=== PATIENT | female | born 1995 | race Caucasian/White ===

== ENCOUNTER 2018-12-25 09:48 | Inpatient (IN) | payer OTHER ==
[2018-12-25] VITALS (26 sets, daily range): BP systolic 130–196; BP diastolic 59–99
[~2018-12-25] VITALS: Ht 165.1 cm; Wt 88.3 kg
[2018-12-25] MEDS ORDERED: METF850T4 PO (10:18)
[2018-12-25] MEDS ORDERED: LACTATED RINGER'S 1000 ML IV STA (10:56)
[2018-12-25] MEDS ORDERED: PENICILLIN G POTASSIUM IV 5 MU in D5W MINI-BAG PLUS 100 ML IV STA (10:56)
[2018-12-25] MEDS ORDERED: LR 1,000 ML IV SCH (10:56)
--- NOTE | 2018-12-25 11:09 | HPEPDOC ---
Obstetrical History & Physical General Date of Admission December 25, 2018 at 10:50 History of Present Illness 22 y/o at 38+5 with LOF 2 hrs ago, no VB or painful ctx's. Having fairly r eg ctx's on NST. Pos FM. Preg c/b GDMA2, on metformin 850 BID. Known likely LGA, 30APR grth scan was 97%ile. Chief Complaint: LOF, term Information Provided By: Patient Care Care: Good Care Dating Final EDC by: LMP, 1st trimester (US) Past Medical History Past Obstetrical History : Past Obstetrical History: Primgravida [employer] History: No pertinent history Past Medical History Medical History denies Surgical History: Tonsilectomy, [place] teeth Family History Significant Family History: No pertinent family hx Social History Marital Status: Family situation: Spouse/partner home Psychosocial History: No pertinent psych hx * Smoker: non-smoker (quit at 8 weeks with pos hcg) Alcohol: Denies Drugs: denies Abuse Violence Screening Have you been hit/kicked/slapp: No Have you been sexually assault: No Imunizations Tdap status: current Influenza Status: current Allergies Coded Allergies: No Known Allergies (Unverified , 12/25/18) Medications Scheduled Metformin HCl (Metformin HCl) 850 Mg Tablet, 850 MG PO BID Physical Examination Physical Examination GENERAL: Alert and oriented times three. ABDOMEN: Gravid and non-tender to touch. FETUS: Is vertex (VTX) by sterile vaginal examination (SVE), 3/80/-2, nitr pos, gross LOF noted EXTREMITIES: No edema. Vital Signs/I&O Vital Signs Date Time Temp Pulse Resp B/P (MAP) Pulse Ox O2 Delivery O2 Flow Rate FiO2 12/25/18 10:13 97.6 84 18 150/99 (116) Laboratory Data 24H [facility] Laboratory Tests 2 12/25/18 10:54: Serology Scanned Report Hepatitis B Testing Urine Culture: No Growth Pertinent Laboratoy Data Blood Type: O+ RBC Antibody Screen: Negative HIV: Negative Hepatitis B: Negative Hepatitis C: Unknown Rapid Plasma Reagin: Nonreactive Rubella: Immune Varicella: Immune Chlamydia/Gonorrhea: Negative Group B Streptococcus: Positive Quad Screen Test: Declined Cystic Fibrosis: Negative Glucose Tolerance Test: 151 Anatomy Ultrasound Placenta Location: Anterior Normal Anatomy: Yes Placenta Previa: No Assessment Variability: Moderate Accelerations: Positive Decelerations: None Tocometer Contractions: Yes Frequency: irregular Duration: less than 60 seconds Strength: palpated as moderate Assessment/Plan Assessment SROM, term, known GDMA2, fair control. Chem 7 with admit labs. Increased risk for shoulder dystocia and macrosomia d/w pt. Plan Admit and orient. Recheck in 4 hrs, if no signif change will start pitocin. Supervisor Education and consent. Diet: clears Group B Streptococcus (GBS) pos, PCN 5/2.5 Labs and intravenous (IV) per unit protocol. Counseled on Pitocin and augmentation of labor as needed. Lactated Ringers (LR): Bolus 1000 mL prior to epidural, then at 125 mL/hr. Anticipate normal spontaneous delivery () C-S as appropriate. SESSIONS,AMANDA Oliveros MD December 25, 2018 11:09
[2018-12-25 11:54] LABS: HEMATOCRIT 32.6 % (36.0-47.0); HEMOGLOBIN 10.4 g/dl (12.0-15.5); MEAN CORPUSCULAR HEMOGLOBIN 24.6 pg (27.0-33.0); MEAN CORPUSCULAR HGB CONC 31.9 g/dl (32.0-36.5); MEAN CORPUSCULAR VOLUME 77.3 fl (80.0-96.0); PLATELET COUNT, AUTOMATED 187 10^3/uL (150-450); RED BLOOD COUNT 4.22 10^6/uL (4.00-5.40); WHITE BLOOD COUNT 7.2 10^3/uL (4.0-10.0)
--- NOTE | 2018-12-25 16:09 | IPNPDOC ---
Text Note Date of Service The patient was seen on 12/25/18. NOTE Cat 1 NST throughout Cx loose /-1 Doing well, recheck in 3-4 hrs, sooner prn Sessions A-FIB/JANETTE A-FIB History Current/History of A-Fib/PAF?: No VS,Fishbone, I+O VS, Fishbone, I+O Laboratory Tests 12/25/18 11:39 Red Blood Count 4.22, Mean Corpuscular Volume 77.3 L, Mean Corpuscular Hemoglobin 24.6 L, Mean Corpuscular Hemoglobin Concent 31.9 L, Red Cell Distribution Width 14.9 H Vital Signs Date Time Temp Pulse Resp B/P (MAP) Pulse Ox O2 Delivery O2 Flow Rate FiO2 12/25/18 14:59 97.6 63 18 142/75 (97) SESSIONS,AMANDA Oliveros MD December 25, 2018 16:09
[2018-12-25] MEDS: PENICILLIN G POTASSIUM IV 2.5 MU in APPROPRIATE DILUENT 1 EA IV SCH ×2 (16:24→19:48)
[2018-12-25 16:53] LABS: BLOOD UREA NITROGEN 11 MG/DL (7-18); CALCIUM LEVEL 8.4 MG/DL (8.5-10.1); CARBON DIOXIDE LEVEL 19 MEQ/L (21-32); CHLORIDE LEVEL 110 MEQ/L (98-107); CREATININE FOR GFR 0.52 MG/DL (0.55-1.30); GLOMERULAR FILTRATION RATE > 60.0 (>60); GLUCOSE, FASTING 79 MG/DL (70-100); POTASSIUM SERUM 4.4 MEQ/L (3.5-5.1); SODIUM LEVEL 140 MEQ/L (136-145)
[2018-12-25] MEDS ORDERED: FENTANYL 2MCG/ML ROPIVACAINE 0.2% IN 0.9% NACL 100ML IVBAG As Ordered ONE (20:15)
[2018-12-25] MEDS ORDERED: REFRIGERATOR IV KEYS XX PRN (22:15)
[2018-12-25] MEDS ORDERED: EPIDURAL COMMENT XX SCH (22:15)
[2018-12-25] MEDS ORDERED: FENTANYL/ROPIVACAINE/NACL BAG 100 ML EPIDURAL SCH (22:15)
[2018-12-25] MEDS ORDERED: LACTATED RINGER'S 1000 ML IV PRN (22:15)
[2018-12-25] MEDS ORDERED: EPIDURAL/PCA KEYS XX PRN (22:15)
[2018-12-25] MEDS ORDERED: ePHEDrine SULFATE 25 MG/5 ML(5MG/ML) SYRINGE IV PRN (22:15)
[2018-12-25] MEDS ORDERED: diphenhydrAMINE INJ 50MG/ML VIAL (J1200) IV PRN (22:15)
[2018-12-25] MEDS ORDERED: NALOXONE INJ 0.4 MG/1 ML VIAL (J2310) IV PRN (22:15)
[2018-12-25] MEDS ORDERED: ONDANSETRON 4MG/2ML VIAL (J2405) IV PRN (22:15)
--- NOTE | 2018-12-25 22:21 | IPNPDOC ---
Text Note Date of Service The patient was seen on 12/25/18. NOTE Was about 3 hrs ago, no time to chart, had to run to a delivery Now s/p epidural, feeling well. FHT Cat 1, reg ctx's Cx 7/100/0, AROM of a forebag, clr Doing well, recheck in 2-3 hrs, sooner prn Sessions A-FIB/JANETTE A-FIB History Current/History of A-Fib/PAF?: No VS,Fishbone, I+O VS, Fishbone, I+O Laboratory Tests 12/25/18 11:39 Red Blood Count 4.22, Mean Corpuscular Volume 77.3 L, Mean Corpuscular Hemoglobin 24.6 L, Mean Corpuscular Hemoglobin Concent 31.9 L, Red Cell Distribution Width 14.9 H, Calcium Level 8.4 L Vital Signs Date Time Temp Pulse Resp B/P (MAP) Pulse Ox O2 Delivery O2 Flow Rate FiO2 12/25/18 22:03 77 133/70 (91) 12/25/18 21:07 98.0 12/25/18 17:06 18 SESSIONS,AMANDA Oliveros MD December 25, 2018 22:21
[2018-12-26] VITALS (15 sets, daily range): BP systolic 114–163; BP diastolic 58–83
[2018-12-26] MEDS ORDERED: OXYTOCIN 30 UNITS IN 0.9% NaCl 500ML IV BAG (J2590) As Ordered ONE (02:04)
[2018-12-26] MEDS ORDERED: LR 1,000 ML IV SCH (02:16)
--- NOTE | 2018-12-26 02:16 | IPNPDOC ---
Text Note Date of Service The patient was seen on 12/26/18. NOTE NST Cat 1, reg ctx's Cx AL/100/+1 Will start pitocin to hopefully get the vtx lower before starting to push Recheck in 60-90 min Krysta WAHL A-FIB/JANETTE A-FIB History Current/History of A-Fib/PAF?: No VS,Fishbone, I+O VS, Fishbone, I+O Laboratory Tests 12/25/18 11:39 Red Blood Count 4.22, Mean Corpuscular Volume 77.3 L, Mean Corpuscular Hemoglobin 24.6 L, Mean Corpuscular Hemoglobin Concent 31.9 L, Red Cell Distribution Width 14.9 H, Calcium Level 8.4 L Vital Signs Date Time Temp Pulse Resp B/P (MAP) Pulse Ox O2 Delivery O2 Flow Rate FiO2 12/26/18 00:54 78 114/58 (76) 12/25/18 23:48 98.3 18 I&O- Last 24 Hours up to 6 AM 12/26/18 05:59 Intake Total 3120 ml Output Total 1650 ml Balance 1470 ml SESSIONS,AMANDA Oliveros MD December 26, 2018 02:16
[2018-12-26] MEDS ORDERED: OXYTOCIN DRIP 30 UNITS in APPROPRIATE DILUENT 1 EA IV SCH ×2 (02:30→05:32)
--- NOTE | 2018-12-26 03:45 | IPNPDOC ---
Text Note Date of Service The patient was seen on 12/26/18. NOTE Pit at 4 mu/min, ctx's q 1-2 min C/C/+2 Start pushing Sessions A-FIB/JANETTE A-FIB History Current/History of A-Fib/PAF?: No VS,Fishbone, I+O VS, Fishbone, I+O Laboratory Tests 12/25/18 11:39 Red Blood Count 4.22, Mean Corpuscular Volume 77.3 L, Mean Corpuscular Hemoglobin 24.6 L, Mean Corpuscular Hemoglobin Concent 31.9 L, Red Cell Distribution Width 14.9 H, Calcium Level 8.4 L Vital Signs Date Time Temp Pulse Resp B/P (MAP) Pulse Ox O2 Delivery O2 Flow Rate FiO2 12/26/18 00:54 78 114/58 (76) 12/25/18 23:48 98.3 18 I&O- Last 24 Hours up to 6 AM 12/26/18 05:59 Intake Total 3120 ml Output Total 1650 ml Balance 1470 ml CHANEL,AMANDA Oliveros MD December 26, 2018 03:45
--- NOTE | 2018-12-26 05:41 | DNPDOC ---
[facility] Delivery Note Delivery Note DATE OF DELIVERY: [id number] PREDELIVERY DIAGNOSIS: 38 6/7 weeks' gestation and labor. POST DELIVERY DIAGNOSIS: Delivered. PROCEDURE: Spontaneous vaginal delivery PEWTER FABRICATOR: Dr. Monzon ANESTHESIA: epidural ESTIMATED BLOOD LOSS: 300 mL. FINDINGS: 10 pound 0 ounce female , Score 9/9 DELIVERY SUMMARY: Great effort, obviously macrosomic. ML epis cut as a tight band would not stretch. No delay of the vtx or ant/post shoulders. To abd, vigorous. Cord C/C by FOB. Cord blood. Large placenta intact, fundus a bit atonic responded to massage, pit going 999, some trailing membranes, removed with bimanual sweep of Cx/BERNARDA. Methergine 0.2 mg IM given. ML epis with no extension, no involvement of the sphincter. Repaired with 3-0 vicryl in standard fashion. Good cosmesis/hemostasis. Uncomplicated. Sessions AMANDA MOY MD December 26, 2018 05:41
[2018-12-26] MEDS ORDERED: METOCLOPRAMIDE INJ 10MG/2ML VIAL (J2765) IV PRN (05:45)
[2018-12-26] MEDS ORDERED: METHYLERGONOVINE MALEATE 0.2 MG/ML VIAL (J2210) IM ONE (05:45)
[2018-12-26] MEDS ORDERED: RHOGAM 300 MCG (1500 IU) INJ (J2790) IM SCH (05:45)
[2018-12-26] MEDS ORDERED: DIBUCAINE 1% OINTMENT 30GM TOP PRN (05:45)
[2018-12-26] MEDS ORDERED: ACETAMINOPHEN TAB 650MG DOSE (2X325MG) PO PRN (05:45)
[2018-12-26] MEDS ORDERED: MEASLES,MUMPS,RUBELLA VACCINE INJ (MMR-II) (90707) SC SCH (05:45)
[2018-12-26] MEDS: PRENATAL VITAMINS CHEWABLE TABLET PO SCH (09:13)
[2018-12-26] MEDS: DOCUSATE SODIUM 100 MG CAP PO SCH ×2 (09:13→21:07)
[2018-12-26] MEDS: IBUPROFEN 800 MG TAB PO PRN ×2 (09:13→16:45)
[2018-12-26] MEDS: METHYLERGONOVINE MALEATE 0.2 MG TAB PO SCH ×4 (10:40→21:07)
[2018-12-27] MEDS ORDERED: METHYLERGONOVINE MALEATE 0.2 MG/ML VIAL (J2210) As Ordered ONE ×2 (01:04→01:05)
[2018-12-27 05:59] VITALS: BP 113/71
--- NOTE | 2018-12-27 08:36 | NUR ---
Progress Note: Date of Service The patient was seen on 12/27/18. NOTE PPD1 Tiffanie reports feeling well, pain controlled with prescribed meds. Baby bonding and feeding with assistance. No heavy VB. Lochia slowing. Ambulatory. Tolerating PO without issues. Voiding spont. No CP/LP/SOB. VSSAF NAD A&O CV-RRR PUL-CTAB LE no C/C/E Ut at U-2, firm Perineum-well approximated and healing Lochia-scant rubra a/p: Doing well. Cont routine care and assist prn. D/C home likely tomorrow.
[2018-12-27] MEDS: IBUPROFEN 800 MG TAB PO PRN (11:45)
[2018-12-27] MEDS: DOCUSATE SODIUM 100 MG CAP PO SCH ×2 (12:10→20:11)
[2018-12-27] MEDS: PRENATAL VITAMINS CHEWABLE TABLET PO SCH (12:10)
[2018-12-27 17:53] VITALS: BP 125/70
[2018-12-28 06:02] VITALS: BP 125/64
[2018-12-28 06:08] VITALS: BP 107/56
[2018-12-28] MEDS ORDERED: PRENCHW PO (07:06)
[2018-12-28] MEDS ORDERED: ACET1TAB55 PO (07:06)
[2018-12-28] MEDS ORDERED: COLA100C5 PO (07:06)
[2018-12-28] MEDS ORDERED: IBUP80TA PO (07:06)
[2018-12-28] MEDS ORDERED: DIBU10OI TOP (07:06)
[2018-12-28] MEDS: DOCUSATE SODIUM 100 MG CAP PO SCH (09:00)
[2018-12-28] MEDS: PRENATAL VITAMINS CHEWABLE TABLET PO SCH (09:00)
--- NOTE | 2018-12-28 11:31 | DSES ---
DATE OF ADMISSION: 12/25/2018 DATE OF DISCHARGE: 23-year-old 1, now para 1, admitted at 38 and 5, with spontaneous rupture of membranes and contractions. She had an epidural in place. Delivered a live , spontaneous vaginal delivery, 10 pounds 0 ounces. Apgars of 9 and 9 at one and five minutes respectively. Placenta was manually removed with sweeping of membranes. Uterus contracted well down under Pitocin. The patient had a midline episiotomy which was repaired in the usual fashion. The uterus was well contracted and rest of the evaluation of vagina and sphincter were intact. On her second day, we discussed phlebitis, cystitis, mastitis, endometritis and cellulitis; diet, exercise and pain management; perineal, breast and wound care. On discharge, vital signs revealed blood pressure was 125/64, respirations 18, pulse 66, and temperature 98.0. Her admitting hemoglobin was 10.4, hematocrit 32.6 and platelets were 187. Meds were dispensed at [facility]. We answered all questions, a 20-minute discussion. The patient is planned for discharge today and will take the baby to [facility] as per appointment.
== END 2018-12-28 13:30 | disposition home or self-care (01) | DRG 807 ==
LOC: M LDO 09:48 → M LDI 10:50 → M OBS 12-26 08:58
PROVIDERS: ADMIT Obstetrics & Gynecology; ATTEND Obstetrics & Gynecology
PROC: 10D17Z9 Manual Extraction of Products of Conception, Retained, Via Natural or Artificial Opening (ICD-10-PCS; principal; 2018-12-26)
PROC: 0W8NXZZ Division of Female Perineum, External Approach (ICD-10-PCS; 2018-12-26)
DX: O24.425 Gestational diabetes mellitus in childbirth, controlled by oral hypoglycemic drugs (principal); Z37.0 Single live birth; Z3A.38 38 weeks gestation of pregnancy; O75.89 Other specified complications of labor and delivery; O36.63X0 Maternal care for excessive fetal growth, third trimester, not applicable or unspecified; O73.1 Retained portions of placenta and membranes, without hemorrhage